=== PATIENT | female | born 1965 | race American Indian/Alaskan Native ===

== ENCOUNTER 2017-03-13 09:16 | Day surgery (SDC) | payer MEDICAID ==
[2016-09-22 02:50] VITALS: BMI 38.2
[2017-03-13 10:20] VITALS: O2SAT 100
[2017-03-13] MEDS ORDERED: Propofol 10 mg/ml Inj (20 ML) ONE ×2 (11:11→11:39)
[2017-03-13] MEDS ORDERED: Lactated Ringer's 500 ML IV ONE (11:12)
[2017-03-13 12:10] VITALS: TEMP 97
[2017-03-13 13:04] VITALS: BP 127/69; PULSE 66; RESP 16
== END 2017-03-13 12:55 | disposition home or self-care (01) ==
LOC: C.ENDO 09:16
PROVIDERS: ATTEND Internal Medicine Gastroenterology
DX: Z12.11 Encounter for screening for malignant neoplasm of colon (principal); K21.9 Gastro-esophageal reflux disease without esophagitis; K52.9 Noninfective gastroenteritis and colitis, unspecified; K57.30 Diverticulosis of large intestine without perforation or abscess without bleeding; R10.13 Epigastric pain
CPT/HCPCS: 43239; 45378; 84703; 88305; 88342; J2704; J3010; J7120

== ENCOUNTER 2018-03-19 14:08 | Emergency (ER) | payer MEDICAID ==
[2018-03-19 14:08] VITALS: BMI 38.2
[2018-03-19 14:21] VITALS: RESP 18; TEMP 97.9
[2018-03-19 15:38] VITALS: BP 122/85; PULSE 81; O2SAT 98
--- NOTE | 2018-03-19 18:09 | C.PDOC ---
History Of Present Illness 52 y/o female with history of ear infection presents to ED with c/o left ear pain for "couple of days". Patient has been evaluated by ENT doctor before and currently denies ear drainage, decreased hearing, fever or any other complaints at this time. Time Seen by Provider: 03/19/18 15:03 Chief Complaint (Nursing): Headache History Per: Patient History/Exam Limitations: no limitations Onset/Duration Of Symptoms: Days Current Symptoms Are (Timing): Still Present Past Medical History Reviewed: Historical Data, Nursing Documentation, Vital Signs Vital Signs: Last Vital Signs Temp 97.9 F 03/19/18 14:18 Pulse 81 03/19/18 15:38 Resp 18 03/19/18 15:38 BP 122/85 03/19/18 15:38 Pulse Ox 98 03/19/18 18:10 - Medical History PMH: Arthritis, Asthma Surgical History: No Surg Hx Family History: States: No Known Family Hx - Social History Hx Tobacco Use: (unknown) Hx Alcohol Use: No Hx Substance Use: No - Immunization History Hx Tetanus Toxoid Vaccination: No Hx Influenza Vaccination: No Hx Pneumococcal Vaccination: No Review Of Systems Constitutional: Negative for: Fever, Chills ENT: Positive for: Ear Pain. Negative for: Ear Discharge Gastrointestinal: Negative for: Nausea, Vomiting Neurological: Negative for: Headache Physical Exam - Physical Exam Appears: Non-toxic, No Acute Distress Skin: Warm, Dry, No Rash Head: Atraumatic, Normacephalic Eye(s): bilateral: Normal Inspection Ear(s): Left: TM Erythema (+Bulging ), Right: Normal Oral Mucosa: Moist Neck: Normal ROM, Other (left anterior cervical chain tenderness) Cardiovascular: Rhythm Regular Respiratory: Normal Breath Sounds, No Rales, No Rhonchi, No Wheezing Gastrointestinal/Abdominal: Soft, No Tenderness, No Guarding, No Rebound Neurological/Psych: Oriented x3, Normal Speech, Normal Cognition ED Course And Treatment O2 Sat by Pulse Oximetry: 98 (RA) Pulse Ox Interpretation: Normal Medical Decision Making Medical Decision Making: Patient d/c with advised f.u to ENT specialist in 1-2 days Disposition - Disposition Referrals: Caron Nuñez, [Non-Staff] - Disposition: HOME/ ROUTINE Disposition Time: 15:10 Condition: GOOD Additional Instructions: ALEK KAMARA, thank you for letting us take care of you today. Your provider was Joshua Aguilera DO. The emergency medical care you received today was directed at your acute symptoms. If you were prescribed any medication , please fill it and take as directed. It may take several days for your symptoms to resolve. Return to the Emergency Department if your symptoms worsen , do not improve, or if you have any other problems. Please contact your doctor or call one of the physicians/clinics you have been referred to that are listed on the Patient Visit Information form that is included in your discharge packet. Bring any paperwork you were given at discharge with you along with any medications you are taking to your follow up visit. Our treatment cannot replace ongoing medical care by a primary care provider outside of the emergency department. Thank you for allowing the [facility] team to be part of your care today. Follow up with your ENT doctor in 1-2 days for re-evaluation and further management. Prescriptions: Amoxicillin/Clavulanate [Augmentin 875 MG-125 MG] 1 tab PO BID #20 tab Pseudoephedrine [Sudafed Tab] 30 mg PO Q6 PRN #20 tab PRN Reason: congestion traMADol [Ultram] 50 mg PO Q8 PRN #15 tab PRN Reason: Pain, Severe (8-10) Instructions: Ear Infections (Otitis Media) (DC) Forms: [employer] (Arabic) - Clinical Impression Clinical Impression: Otitis media - Scribe Statement The provider has reviewed the documentation as recorded by the Scribe Cesario Loomis All medical record entries made by the Lucreciaibe were at my direction and personally dictated by me. I have reviewed the chart and agree that the record accurately reflects my personal performance of the history, physical exam, medical decision making, and the department course for this patient. I have also personally directed, reviewed, and agree with the discharge instructions and disposition.
== END 2018-03-19 15:38 | disposition home or self-care (01) ==
LOC: C.ER 14:08
DX: H66.92 Otitis media, unspecified, left ear (principal); F17.210 Nicotine dependence, cigarettes, uncomplicated
CPT/HCPCS: 96372; 99284; J1885

== ENCOUNTER 2018-06-24 13:20 | Emergency (ER) | payer MEDICAID ==
[2018-06-24 13:20] VITALS: BMI 38.2
[2018-06-24 14:31] LABS: HCG,QUALITATIVE URINE NEGATIVE (NEGATIVE)
[2018-06-24 14:32] LABS: SQUAMOUS EPITHIAL 2 /hpf (0-5); URINE BACTERIA RARE (<OCC); URINE BILIRUBIN NEGATIVE (NEGATIVE); URINE BLOOD NEGATIVE (NEGATIVE); URINE CLARITY Clear (Clear); URINE COLOR Yellow (YELLOW); URINE GLUCOSE (UA) NORMAL (Normal); URINE LEUKOCYTE ESTERASE NEG Leu/uL (Negative); URINE PROTEIN NEGATIVE (NEGATIVE); URINE UROBILINOGEN NORMAL mg/dL (0.2-1.0)
[2018-06-24 14:34] LABS: BASO # 0.1 K/uL (0.0-0.2); BASO % 1.2 % (0.0-2.0); EOS # 0.1 K/uL (0.0-0.7); EOS % 1.7 % (0.0-4.0); HEMOGLOBIN 11.4 g/dL (11.0-16.0); LYMPH # 1.3 K/uL (1.0-4.3); LYMPH % 25.5 % (20.0-40.0); MEAN CORPUSCULAR HEMOGLOBIN 27.5 pg (27.0-31.0); MEAN CORPUSCULAR HGB CONC 32.9 g/dL (33.0-37.0); MEAN PLATELET VOLUME 9.2 fL (7.2-11.7); MONO # 0.4 K/uL (0.0-0.8); MONO % 7.7 % (0.0-10.0); NEUT # 3.2 K/uL (1.8-7.0); NEUT % 63.9 % (50.0-75.0); RBC 4.14 Mil/uL (3.80-5.20); RED CELL DISTRIBUTION WIDTH 15.1 % (11.5-14.5)
[2018-06-24 14:39] LABS: MEAN CELL VOLUME 83.6 fL (81.0-99.0)
--- NOTE | 2018-06-24 14:43 | RAD ---
Date of service: 06/24/2018 PROCEDURE: CHEST RADIOGRAPH, 1 VIEW HISTORY: cp COMPARISON: None available. FINDINGS: LUNGS: Clear. PLEURA: No pneumothorax or pleural fluid seen. CARDIOVASCULAR: Cardiomediastinal silhouette stably prominent. OSSEOUS STRUCTURES: No significant abnormalities. VISUALIZED UPPER ABDOMEN: Normal. OTHER FINDINGS: None. IMPRESSION: No active disease.
[2018-06-24 14:45] LABS: ALB/GLOB RATIO 1.2 (1.0-2.1); ALBUMIN 3.6 g/dL (3.5-5.0); ALT/SGPT 32 U/L (9-52); AST/SGOT 17 U/L (14-36); BLOOD UREA NITROGEN 8 mg/dL (7-17); CALCIUM 8.6 mg/dl (8.6-10.4); GFR NON-AFRICAN AMERICAN > 60
--- NOTE | 2018-06-24 14:55 | CT ---
Date of service: 06/24/2018 PROCEDURE: CT HEAD WITHOUT CONTRAST. HISTORY: left arm numbness, left ear pain, left neck pain COMPARISON: CT head dated 12/12/2014. TECHNIQUE: Axial computed tomography images were obtained through the head/brain without intravenous contrast. Radiation dose: Total exam DLP = 1106.8 mGy-cm. This CT exam was performed using one or more of the following dose reduction techniques: Automated exposure control, adjustment of the mA and/or kV according to patient size, and/or use of iterative reconstruction technique. FINDINGS: HEMORRHAGE: No intracranial hemorrhage. BRAIN: No mass effect or edema. No atrophy or chronic microvascular ischemic changes. VENTRICLES: Unremarkable. No hydrocephalus. CALVARIUM: Unremarkable. PARANASAL SINUSES: Unremarkable as visualized. No significant inflammatory changes. MASTOID AIR CELLS: Unremarkable as visualized. No inflammatory changes. OTHER FINDINGS: None. IMPRESSION: No acute intracranial pathology. No significant interval change.
[2018-06-24 14:59] LABS: CK-MB < 0.22 ng/mL (0.0-3.38)
--- NOTE | 2018-06-24 16:00 | C.PDOC ---
History Of Present Illness Patient presents to ED c/o intermittent tingling in her left arm/neck for several months, 1 episode of sharp pain behind her left breast yesterday, and left ear pain for approx 1 week. She denies SOB, cough, fever, abdominal pain, nausea/vomiting, diarrhea, ear discharge, sore throat. PMhx of asthma, (+) CAD in father and brother. Time Seen by Provider: 06/24/18 13:35 Chief Complaint (Nursing): Chest Pain History Per: Patient History/Exam Limitations: no limitations Onset/Duration Of Symptoms: Days Current Symptoms Are (Timing): Still Present Severity: Mild Past Medical History Reviewed: Historical Data, Nursing Documentation, Vital Signs Vital Signs: Last Vital Signs Temp 98.4 F 06/24/18 13:36 Pulse 84 06/24/18 13:36 Resp 18 06/24/18 13:36 BP 127/81 06/24/18 13:36 Pulse Ox 97 06/24/18 16:07 - Medical History PMH: Arthritis, Asthma Family History: States: No Known Family Hx - Social History Hx Tobacco Use: (unknown) Hx Alcohol Use: Yes Hx Substance Use: No - Immunization History Hx Tetanus Toxoid Vaccination: No Hx Influenza Vaccination: No Hx Pneumococcal Vaccination: No Review Of Systems Constitutional: Negative for: Fever, Chills ENT: Positive for: Ear Pain (left) Cardiovascular: Positive for: Chest Pain. Negative for: Palpitations Respiratory: Negative for: Cough, Shortness of Breath Gastrointestinal: Negative for: Nausea, Vomiting, Abdominal Pain, Diarrhea Skin: Negative for: Rash Neurological: Positive for: Numbness (left arm tingling). Negative for: Weakness, Confusion, Headache, Dizziness Physical Exam - Physical Exam Appears: Well, Non-toxic, No Acute Distress Skin: Normal Color, Warm, Dry, No Rash Head: Atraumatic, Normacephalic Eye(s): bilateral: Normal Inspection, PERRL, EOMI Ear(s): Bilateral: Normal Oral Mucosa: Moist Neck: Normal, Normal ROM, No Midline Cervical Tenderness, Paracervical Tenderness (left lateral neck TTP along trapezius), No Step Off Deformity, Supple Cardiovascular: Rhythm Regular Respiratory: Normal Breath Sounds, No Rales, No Rhonchi, No Wheezing Gastrointestinal/Abdominal: Normal Exam, Bowel Sounds, Soft, No Tenderness Extremity: Normal ROM, No Pedal Edema, No Calf Tenderness Pulses: Left Dorsalis Pedis: Normal, Right Dorsalis Pedis: Normal Neurological/Psych: Oriented x3, Normal Speech, Normal Cognition, Normal Cranial Nerves, No Cerebellar Signs, Normal Motor, Normal Sensation, No Dysarthria, No Romberg Gait: Steady ED Course And Treatment - Laboratory Results Result Diagrams: 06/24/18 14:27 06/24/18 14:27 ECG: Interpreted By Me, Viewed By Me (NSR 71 bpm, normal axis, no acute ST/T wave changes) ECG Interpretation: No Acute Changes O2 Sat by Pulse Oximetry: 97 (RA) Pulse Ox Interpretation: Normal - Other Rad CXR X-Ray: Viewed By Me, Read By Radiologist Interpretation: Accession No. : [id number]. Patient Name / ID : ASAD GASTON / [id number]. Exam Date : 06/24/2018 14:24:41 ( Approved ). Study Comment : Sex / Age : F / 52Y. Creator : Mack Guillen MD. Dictator : Mack Guillen MD. Adult High School Instructor : Physics And Astronomy Professor : Mack Guillen MD. Approver2 : Report Date : 06/24/2018 14:41:36. My Comment : . Date of service: 06/24/2018. PROCEDURE: CHEST RADIOGRAPH, 1 VIEW. HISTORY: cp. COMPARISON: None available. FINDINGS: LUNGS: Clear. PLEURA: No pneumothorax or pleural fluid seen. CARDIOVASCULAR: Cardiomediastinal silhouette stably prominent. OSSEOUS STRUCTURES: No significant abnormalities. VISUALIZED UPPER ABDOMEN: Normal. OTHER FINDINGS: None. IMPRESSION: No active disease. - CT Scan/US CT HEAD Other Rad Studies (CT/US): Read By Radiologist, Radiology Report Reviewed CT/US Interpretation: Accession No. : [id number]. Patient Name / ID : ASAD GASTON / [id number]. Exam Date : 06/24/2018 14:44:18 ( Approved ) . Study Comment : Sex / Age : F / 52Y. Creator : Mack Guillen MD. Dictator : Mack Guillen MD. Adult High School Instructor : Physics And Astronomy Professor : Mack Guillen MD. Approver2 : Report Date : 06/24/2018 14:54:24. My Comment : . Date of service: 06/24/2018. PROCEDURE: CT HEAD WITHOUT CONTRAST. HISTORY: left arm numbness, left ear pain, left neck pain. COMPARISON: CT head dated . TECHNIQUE: Axial computed tomography images were obtained through the head/brain without intravenous contrast. Radiation dose: Total exam DLP = 1106.8 mGy-cm. This CT exam was performed using one or more of the following dose reduction techniques: Automated exposure control, adjustment of the mA and/ or kV according to patient size, and/or use of iterative reconstruction technique. FINDINGS: HEMORRHAGE: No intracranial hemorrhage. BRAIN: No mass effect or edema. No atrophy or chronic microvascular ischemic changes. VENTRICLES: Unremarkable. No hydrocephalus. CALVARIUM: Unremarkable. PARANASAL SINUSES: Unremarkable as visualized. No significant inflammatory changes. MASTOID AIR CELLS: Unremarkable as visualized. No inflammatory changes. OTHER FINDINGS: None. IMPRESSION: No acute intracranial pathology. No significant interval change. Progress Note: Blood work, EKG, CT head ordered and reviewed. Disposition Counseled Patient/Family Regarding: Studies Performed, Diagnosis, Need For Followup - Disposition Referrals: Quinn Avelar MD [Medical Doctor] - Oliver Segundo MD [Staff Provider] - Disposition: HOME/ ROUTINE Disposition Time: 17:00 Condition: STABLE Additional Instructions: FOLLOW UP WITH YOUR DOCTOR IN 1-2 DAYS FOLLOW UP WITH CARDIOLOGY WITHIN 1 WEEK RETURN TO ER IF YOU HAVE ANY CONCERNING SYMPTOMS Forms: [employer] (Rwandan), General Discharge Instructions Print Language: MALTESE - POA Present On Arrival: None - Clinical Impression Clinical Impression: Evaluation by medical service required
[2018-06-24 16:40] LABS: CK-MB < 0.22 ng/mL (0.0-3.38)
[2018-06-24 17:24] VITALS: BP 122/78; PULSE 80; RESP 16; TEMP 98.2; O2SAT 99
== END 2018-06-24 17:22 | disposition home or self-care (01) ==
LOC: C.ER 13:20
DX: Z00.00 Encounter for general adult medical examination without abnormal findings (principal)